=== PATIENT | female | born 2000 | race Asian ===

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

== ENCOUNTER 2019-07-09 14:27 | Outpatient (CLI) | payer OTHER ==
[2019-07-09 15:52] VITALS: BP 116/53
[2019-07-09] MEDS ORDERED: LACTATED RINGERS 1,000 ML IV ONE (17:00)
--- NOTE | 2019-07-09 17:31 | Ultrasound Report ---
Limited OB ultrasound for biophysical profile FINDINGS: breathing, spontaneous motion, tone and qualitative MAUREEN all score 2/2 for a tot al of 8/8. heart rate is 139 bpm. MAUREEN measures 9.2 cm. Signer Name: Dale Bermeo MD Signed: 07/09/2019 5:26 PM Workstation Name: [id number]
--- NOTE | 2019-07-09 18:24 | Ultrasound Report ---
ULTRASOUND BIOPHYSICAL PROFILE INDICATION / CLINICAL INFORMATION: BPP/MAUREEN. COMPARISON: None available. FINDINGS: BREATHING MOVEMENT = 2 GROSS BODY MOVEMENT = 2 TONE = 2 QUALITATIVE AMNIOTIC FLUID VOLUME = 2 TOTAL BIOPHYSICAL SCORE = 8/8 AMNIOTIC FLUID INDEX (cm) = 9.2 PRESENTATION: Cephalic. HEART RATE (beats per minute): 139 IMPRESSION: 1. biophysical profile = 8/8 2. Amniotic fluid index measures 9.2 cm. Signer Name: Jonathon Rodriguez MD Signed: 07/09/2019 6:20 PM Workstation Name: [id number]
== END 2019-07-09 18:47 | disposition home or self-care (01) ==
LOC: TRG 14:27
PROVIDERS: ATTEND Obstetrics & Gynecology
DX: O42.913 Preterm premature rupture of membranes, unspecified as to length of time between rupture and onset of labor, third trimester (principal); Z3A.36 36 weeks gestation of pregnancy
CPT/HCPCS: 76815; 76819

== ENCOUNTER 2019-07-13 23:35 | Outpatient (CLI) | payer OTHER ==
[2019-07-13 23:57] VITALS: BP 107/66
[2019-07-14] MEDS ORDERED: LACTATED RINGERS 1,000 ML IV SCH (01:00)
== END 2019-07-14 04:21 | disposition home or self-care (01) ==
LOC: TRG 23:35
PROVIDERS: ATTEND Obstetrics & Gynecology
DX: O42.92 Full-term premature rupture of membranes, unspecified as to length of time between rupture and onset of labor (principal); O47.1 False labor at or after 37 completed weeks of gestation; Z3A.37 37 weeks gestation of pregnancy
CPT/HCPCS: 59025; 96360; J7120

== ENCOUNTER 2019-07-30 14:48 | Inpatient (IN) | payer OTHER ==
[2019-07-30] MEDS ORDERED: LACTATED RINGERS 1,000 ML ONE (16:42)
[2019-07-30] MEDS ORDERED: BUTORPHANOL 2 MG/1 ML INJ IV PRN ×2 (16:49)
[2019-07-30] MEDS ORDERED: fentaNYL 100 MCG/2 ML INJ IV PRN (16:49)
[2019-07-30] MEDS ORDERED: LIDOCAINE (2%) 20 MG/1 ML VIAL 20 ML MDV INFILTRATI ONE (16:49)
[2019-07-30] MEDS ORDERED: TERBUTALINE 1 MG/1 ML INJ IVP PRN (16:49)
[2019-07-30] MEDS ORDERED: ePHEDrine SULFATE 50 MG/1 ML INJ IV PRN ×2 (16:49→21:02)
[2019-07-30] MEDS ORDERED: TERBUTALINE 1 MG/1 ML INJ SUB-Q PRN (16:49)
[2019-07-30] MEDS ORDERED: MINERAL OIL 30 ML ORAL LIQD PO PRN (16:49)
--- NOTE | 2019-07-30 16:49 | History and Physical Report ---
History of Present Illness Date of examination: 07/30/19 Date of admission: 07/30/19 Chief complaint: Leaking fluid History of present illness: 19yo G 2 P 1 0 0 1 at 38 weeks 5 days presents with contractions and leaking fluid since 07/29/19 @ 15:00. She reports +FMs but denies VB. She is a [facility] patient who initiated care at 7 weeks gestation. Her course is significant for morbid obesity and abnormal pap (ASCUS). LABS: Opos, Antibody Screen neg, VDRL NR, RI, HBsAg neg, HIV neg, Pap Test ASCUS, GC/CT neg, GBS neg Past History Past Medical History: no pertinent history Family/Genetic History: diabetes (mom), hypertension (mom), Down's syndrome, other (anemia-mom, nephrotic syndrome) Social history: single, lives with family, full code. denies: smoking, alcohol abuse, prescription drug abuse, IV drug use - Obstetrical History Expected Date of Delivery: 08/08/19 Actual Gestation: 38 Week(s) 5 Day(s) : 2 Para: 1 Hx # Term Pregnancies: 1 Number of Pregnancies: 0 Spontaneous Abortions: 0 Induced : 0 Number of Living Children: 1 #1 Gender: Male year: 2[age]018 (11/2019) Birthweight: 3.629 kg (8 lbs) Method of Delivery: Vaginal (vacuum-assisted) Gestational age at delivery: 39 Complications: none Medications and Allergies Allergies Allergy/AdvReac Type Severity Reaction Status Date / Time No Known Allergies Allergy Verified 11/18/17 15:05 Home Medications Medication Instructions Recorded Confirmed Last Taken Type Vit-Fe Fumar-FA [ 1 tab PO QDAY 11/18/17 11/18/17 11/18/17 09:00 History Vitamin] 1 Review of Systems All systems: negative - Vital Signs Vital signs: Vital Signs Pulse BP 106 H 116/63 07/30/19 15:05 07/30/19 15:05 Temp Pulse Resp BP Pulse Ox 98.2 F 91 H 15 112/53 98 07/30/19 15:10 07/30/19 16:41 07/30/19 15:10 07/30/19 16:38 07/30/19 16:41 - Obstetrical FHR: auscultation normal, category 1 FHR comments: baseline 150, moderate variability, 15x15 accels, no decels Cervical Dilatation: 6 (per RN) Cervical Effacement Percentage: 70 (per RN) station: -2(per RN) Results All other labs normal. Assessment and Plan - Patient Problems (1) 38 weeks gestation of Current Visit: Yes Status: Acute (2) SPROM (prolonged spontaneous rupture of membranes) Current Visit: Yes Status: Acute Plan to address problem: Pt is afebrile Prophylactic antibiotics therapy initiated (3) Active labor at term Current Visit: Yes Status: Acute Plan to address problem: Admit to L&D with routine labor orders Start Oxytocin for labor augmentation Anticipate vaginal delivery (4) Morbid obesity with BMI of 40.0-44.9, adult Current Visit: Yes Status: Acute
[2019-07-30] MEDS ORDERED: OXYTOCIN DRIP 30 UNITS/500 ML BAG IV SCH (17:00)
[2019-07-30] MEDS ORDERED: OXYTOCIN 20 UNIT/1000ML DRIP 20 UNITS/1,000 ML BAG IV SCH (17:00)
[2019-07-30 17:23] LABS: Hematocrit 33.4 % (30.3-42.9); Mean Corpuscular HGB Conc 33 % (30-34); Mean Corpuscular Volume 86 fl (79-97); Platelet Count 255 K/mm3 (140-440); Red Blood Count 3.88 M/mm3 (3.65-5.03); Red Cell Distribution Width 15.7 % (13.2-15.2)
[2019-07-30] MEDS ORDERED: GENTAMICIN/NS 120MG/100ML 120 MG/100 ML BAG IV ONE (17:30)
[2019-07-30] MEDS ORDERED: ONDANSETRON 4 MG/2 ML INJ ONE (17:45)
[2019-07-30] MEDS ORDERED: ONDANSETRON 4 MG/2 ML INJ IV PRN ×2 (17:46→23:39)
[2019-07-30] MEDS ORDERED: AMPICILLIN/NS 2 GM/100 ML 2 GM/100 ML BAG IV SCH (18:00)
[2019-07-30] MEDS ORDERED: diphenhydrAMINE 50 MG/ML VIAL IV ONE (18:27)
--- NOTE | 2019-07-30 18:32 | Event Note ---
Date: 07/30/19 Was notified by RN that after initiating Ampicillin secondary to prolonged SROM pt c/o feeling like her throat was closing. Ampicillin was immediately discontinued. O2 sat is 97%. Benadryl 25mg IV x1 ordered. Clindamycin 900mg IV q8h ordered.
[2019-07-30] MEDS: GENTAMICIN/NS 80 MG/100 ML 100 ML IV SCH (18:47)
[2019-07-30] MEDS: LACTATED RINGERS 1,000 ML IV SCH ×3 (19:40→21:48)
[2019-07-30] MEDS ORDERED: DEXMEDETOMIDINE 200 MCG/2 ML VIAL IV ONE (20:27)
[2019-07-30] MEDS ORDERED: NALOXONE 2 MG/2 ML INJ IV PRN (21:02)
--- NOTE | 2019-07-30 21:13 | Anesthesia Consultation ---
Anesthesia Consult and Med Hx Date of service: 07/30/19 - Airway Anesthetic Teeth Evaluation: Good ROM Head & Neck: Adequate Mental/Hyoid Distance: Adequate Mallampati Class: Class III Intubation Access Assessment: Probably Good - Pulmonary Exam CTA: Yes - Cardiac Exam Cardiac Exam: RRR - Pre-Operative Health Status ASA Pre-Surgery Classification: ASA3 Proposed Anesthetic Plan: Epidural - Pulmonary Hx Smoking: No Hx Asthma: No Hx Respiratory Symptoms: No SOB: No COPD: No Home Oxygen Therapy: No Hx Pneumonia: No Hx Sleep Apnea: No - Cardiovascular System Hx Hypertension: No Hx Coronary Artery Disease: No Hx Heart Attack/AMI: No Hx Angina: No Hx Percutaneous Transluminal Coronary Angioplasty (PTCA): No Hx Cardia Arrhythmia: No Hx Pacemaker: No Hx Internal Defibrillator: No Hx Valvular Heart Disease: No Hx Heart Murmur: No Hx Peripheral Vascular Disease: No - Central Nervous System Hx Neuromuscular Disorder: No Hx Seizures: No CVA: No Hx Back Pain: No Hx Psychiatric Problems: No - Gastrointestinal Hx Ulcer: No Hx Gastroesophageal Reflux Disease: No - Endocrine Hx Renal Disease: No Hx End Stage Renal Disease: No Hx Cirrhosis: No Hx Liver Disease: No Hx Insulin Dependent Diabetes: No Hx Non-Insulin Dependent Diabetes: No Hx Thyroid Disease: No Hx Hypothyroidism: No Hx Hyperthyroidism: No - Hematic Hx Anemia: No Hx Sickle Cell Disease: No - Other Systems Hx Alcohol Use: No Hx Substance Use: No Hx Cancer: No Hx Obesity: Yes
[2019-07-30] MEDS ORDERED: fentaNYL-BUPIV 2 MCG/ML-0.125% 200 MCG/100 ML BAG EPIDURAL SCH (22:00)
[2019-07-30] MEDS: OXYTOCIN 20 UNIT/1000ML DRIP 20 UNITS/1,000 ML BAG IV SCH (22:56)
[2019-07-30] MEDS ORDERED: miSOPROStol 200 MCG TAB ONE (22:57)
[2019-07-30] MEDS ORDERED: miSOPROStol 200 MCG TAB PR ONE (22:59)
--- NOTE | 2019-07-30 23:33 | Procedure Note ---
OB Delivery Note - Delivery Date of Delivery: 07/30/19 (22:52) Surgeon: AVERY GRAY (CNM) Estimated blood loss: other (250cc) - Vaginal Delivery presentation: compound (vertex + right posterior hand) Delivery position: OA Intrapartum events: meconium, other(please specify) (prolonged SROM >24 hrs) Delivery induction: none Delivery augmentation: pitocin Delivery monitor: external FHT, external uterine Route of delivery: (22:52) Delivery placenta: spontaneous (22:56) Delivery cord: 3 umbilical vessels Episiotomy: none Delivery laceration: 1st degree (perineal, periurethral) Delivery repair: vicryl Anesthesia: epidural Delivery comments: of a less vigorous 8 lbs 1.2 oz female on 07/30/19 @ 22:52 with NICU team at bedside. Umbilical cord double-clamped and cut and baby taken to radiant warmer for resuscitation by NICU team personnel. Cord blood collected. Spontaneous delivery of placenta, Nancy-side presenting @ 22:56.Heavy lochia present. Fundal massage and IV Pitocin bolus initiated. Cytotec 800mcg DC administered. Fundus F/ML/U. 1st degree perineal and periurethral laceration noted and repaired under epidural anesthesia. Patient tolerated the procedure well. Placenta to pathology secondary to meconium & prolonged ROM. Mom and baby in stable condition. - A at 1 minute: 8 at 5 minutes: 9 Gender: Female (8 lbs 1.2oz (3664 gm); 19.5 in)
[2019-07-30] MEDS ORDERED: PROMETHAZINE 25 MG RECT SUPP PR PRN (23:39)
[2019-07-30] MEDS ORDERED: MAGNESIUM HYDROXIDE (MOM) ORAL LIQD UDC PO PRN (23:39)
[2019-07-30] MEDS ORDERED: LANOLIN/ZINC/DIMETHICONE (LANSINOH) 7 GM TP PRN (23:39)
[2019-07-30] MEDS ORDERED: diphenhydrAMINE 25 MG CAP PO PRN (23:39)
[2019-07-30] MEDS ORDERED: WITCH HAZEL/ GLYCERIN PAD TP PRN (23:39)
[2019-07-30] MEDS ORDERED: ACETAMINOPHEN 325 MG TAB PO PRN (23:39)
[2019-07-30] MEDS ORDERED: PROMETHAZINE 25 MG TAB PO PRN (23:39)
[2019-07-31] MEDS: OXYTOCIN 20 UNIT/1000ML DRIP 20 UNITS/1,000 ML BAG IV SCH (00:07)
[2019-07-31] MEDS: GENTAMICIN/NS 80 MG/100 ML 100 ML IV SCH ×3 (02:45→18:21)
[2019-07-31] MEDS: IBUPROFEN 600 MG TAB PO SCH ×4 (05:26→22:33)
[2019-07-31 06:22] LABS: Hematocrit 29.9 % (30.3-42.9); Hemoglobin 9.9 gm/dl (10.1-14.3); Mean Corpuscular HGB Conc 33 % (30-34); Mean Corpuscular Volume 87 fl (79-97); Platelet Count 227 K/mm3 (140-440); Red Blood Count 3.44 M/mm3 (3.65-5.03); Red Cell Distribution Width 15.3 % (13.2-15.2)
[2019-07-31] MEDS: PRENATAL VIT27-FE FUMARATE-FOLIC ACID VIT TAB PO SCH (09:32)
[2019-07-31] MEDS: FERROUS SULFATE 325 MG TAB PO SCH ×2 (09:32→22:34)
--- NOTE | 2019-07-31 09:38 | Progress Note ---
Assessment and Plan - Patient Problems (1) Status post normal vaginal delivery Current Visit: Yes Status: Acute Plan to address problem: Continue routine PP orders Anticipate d/c home tomorrow F/U at office in 6 wks for routine PP visit (2) Anemia Current Visit: Yes Status: Acute Qualifiers: Anemia type: other cause Other causes of anemia: acute posthemorrhagic Qualified Code(s): D62 - Acute posthemorrhagic anemia Plan to address problem: Asymptomatic Continue daily oral iron supplementation as directed Increase iron rich foods into diet Subjective - Subjective Date of service: 07/31/19 Principal diagnosis: S/P ; PPD#1 Interval history: See admission H & P; OB delivery summary and PP progress notes Patient reports: appetite normal, voiding normally, pain well controlled, flatus, ambulating normally : doing well, bottle feeding (and ) Objective - Vital Signs Latest vital signs: Vital Signs Temp Pulse Resp BP BP Pulse Ox 07/31/19 07:36 98.7 F 73 20 103/49 97 07/31/19 04:00 98.4 F 74 18 102/74 07/30/19 23:31 73 122/58 07/30/19 23:07 79 115/59 07/30/19 22:48 133 H 99 07/30/19 22:43 86 98 07/30/19 22:38 93 H 99 07/30/19 22:33 87 99 07/30/19 22:28 88 98 07/30/19 22:26 102 H 93 07/30/19 22:23 90 97 07/30/19 22:18 84 98 07/30/19 22:15 91 H 87 07/30/19 22:13 91 H 99 07/30/19 22:08 92 H 99 07/30/19 22:06 78 103/51 07/30/19 22:03 77 96 07/30/19 21:58 80 97 07/30/19 21:53 86 98 07/30/19 21:51 76 104/52 07/30/19 21:48 78 98 07/30/19 21:43 85 98 07/30/19 21:40 81 113/53 07/30/19 21:38 80 98 07/30/19 21:33 95 H 98 07/30/19 21:28 84 98 07/30/19 21:23 82 99 031620 21:21 78 107/53 0316/20 21:18 89 111/53 100 031620 21:15 81 108/54 031620 21:13 76 98 031620 21:12 83 104/54 031620 21:09 85 118/59 1620 21:08 86 99 031620 21:06 85 113/57 1620 21:03 87 109/53 98 1620 21:01 86 116/56 031620 20:58 87 100 031620 20:54 86 100/50 031620 20:53 92 H 99 031620 20:51 85 111/53 1620 20:49 94 H 93 031620 20:48 85 116/57 97 1620 20:45 75 135/63 031620 20:43 94 H 100 031620 20:40 97 H 129/60 1620 20:38 104 H 97 031620 20:33 64 99 031620 20:28 100 H 97 031620 20:26 100 H 129/60 0316/20 20:23 83 98 031620 20:18 79 97 031620 20:13 82 97 031620 20:11 65 93 031620 20:10 82 93/54 0316/20 20:08 88 97 031620 20:03 85 100 031620 19:58 84 97 031620 19:55 82 104/56 031620 19:53 66 95 0316/20 19:50 72 91 0316/20 19:48 81 94 0316/20 19:43 81 97 031620 19:40 86 104/55 031620 19:38 76 97 031620 19:33 81 98 031620 19:28 98.4 F 80 22 117/53 117/53 97 031620 19:23 83 97 0316/20 19:22 66 92 031620 19:18 78 96 031620 19:13 89 97 0320 19:08 81 97 03/16/20 19:03 92 H 97 20 18:58 79 99 20 18:53 84 97 20 18:48 65 96 20 18:43 83 97 20 18:38 86 96 20 18:33 93 H 97 07/30/19 18:28 88 96 07/30/19 18:23 90 97 07/30/19 18:18 85 99 07/30/19 18:13 90 98 20 18:11 84 104/52 07/30/19 18:08 97 H 96 07/30/19 18:03 100 H 96 07/30/19 18:01 92 H 110/48 07/30/19 17:58 86 95 20 17:55 88 92/52 20 17:53 86 89/52 96 20 17:51 81 93/51 20 17:49 80 89/51 94 20 17:48 99 H 96 20 17:40 89 102/52 20 17:11 91 H 111/63 20 17:00 98.2 F 07/30/19 16:41 91 H 98 1620 16:38 93 H 112/53 20 16:36 86 98 20 16:31 97 H 98 20 15:38 111 H 88 20 15:37 105 H 100 20 15:32 97 H 99 20 15:27 100 H 98 20 15:22 103 H 98 20 15:17 98 H 98 20 15:12 94 H 97 1620 15:10 98.2 F 106 H 15 116/63 97 1620 15:05 106 H 116/63 Intake and Output 07/30/1920 07/31/19 23:59 07:59 15:59 Intake Total 2051.467 1640 Output Total 1100 Balance 2051.467 540 Intake: IV 2051.467 1100 CLEOCIN 900 MG/50 mL 900 50 mg In 50 ml @ 100 mls/hr IV Q8H [facility] Rx#:[id number] Gentamicin/Ns 80 mg/100 100 100 ml 100 ml @ 200 mls/hr IV Q8H [facility] Rx#:[id number] Lactated Ringers 1,000 ml 1900 @ 125 mls/hr IV DIRECT [facility] Rx#:[id number] PITOCin/NS 20 UNIT/1000ML 1000 DRIP 20 units In 1,000 ml @ As Directed IV DIRECT [facility] Rx#:[id number] PITOCin/NS 30 UNIT/500ML 2.467 30 units In 500 ml @ As Directed IV TITR [facility] Rx#: [id number] Oral 240 Intake, Free Water 300 Output: Urine 1100 Self-Catheterization 300 Void 800 Other: Total, Intake Amount 240 Total, Output Amount 800 # Voids Void 1 Estimated Blood Loss 250 - Exam Breasts: Present: normal Cardiovascular: Present: Regular rate Lungs: Present: Normal air movement Abdomen: Present: soft Uterus: Present: firm, fundal height below umbilicus (U-1) Extremities: Present: edema (some edema in feet) Deep Tendon Reflex Grade: Normal +2 Incision: Present: other (1st degree laceration, healing as expected) - Labs Labs: Abnormal lab results 07/30/19 07/31/19 Range/Units 15:50 05:55 WBC 17.7 H 16.4 H (4.5-11.0) K/mm3 RBC 3.44 L (3.65-5.03) M/mm3 Hgb 9.9 L (10.1-14.3) gm/dl Hct 29.9 L (30.3-42.9) % RDW 15.7 H 15.3 H (13.2-15.2) %
[2019-07-31] MEDS: HYDROcodone/ACETAMINOPHEN 5-325 MG TAB PO PRN ×2 (09:40→17:10)
--- NOTE | 2019-07-31 09:44 | Discharge Summary ---
Providers - Providers Date of Admission: 07/30/19 14:49 Date of discharge: 08/01/19 (1200) Attending physician: KATY ARECHIGA MD Primary care physician: KATY ARECHIGA MD Hospitalization Reason for admission: active labor, IUP at term Delivery: Episiotomy: none Laceration: 1st degree (healing as expected) Other procedures: none complications: other (anemia) Discharge diagnosis: IUP at term delivered, other (anemia) [place] baby: female Hospital course: See admission H & P; OB delivery summary and PP progress notes Condition at discharge: Stable Disposition: DC-01 TO HOME OR SELFCARE - Discharge Diagnoses (1) Status post normal vaginal delivery Status: Acute (2) Anemia Status: Acute Qualifiers: Anemia type: other cause Other causes of anemia: acute posthemorrhagic Qualified Code(s): D62 - Acute posthemorrhagic anemia Plan - Discharge Medications Prescriptions: Ferrous Sulfate [Feosol 325 MG tab] 325 mg PO QDAY 30 Days #30 tablet - Provider Discharge Summary Activity: routine, no sex for 6 weeks, no heavy lifting 4 weeks, no strenuous exercise Diet: other (Iron rich diet) Instructions: routine Additional instructions: [] Smoking cessation referral if applicable(refer to patient education folder for contact #) [] Refer to [facility] Booklet Call your doctor immediately for: * Fever > 100.5 * Heavy vaginal bleeding ( >1 pad per hour) * Severe persistent headache * Shortness of breath * Reddened, hot, painful area to leg or breast * Drainage or odor from incision. * Keep laceration site clean and dry at all times and follow doctor's instructions regarding bathing/showering - Follow up plan Follow up: KATY ARECHIGA MD [Primary Care Provider] - 6 Weeks
--- NOTE | 2019-07-31 14:21 | Post Anesthesia Evaluation ---
- Post Anesthesia Evaluation Patient Participated: Yes Airway Patent: Yes Stable Respiratory Function: Yes Nausea/Vomiting: No Temp > 96.8F: Yes Pain Manageable: Yes Adequeate Hydration: Yes Anesthesia Complications: No Block Receding Appropriately: Yes Patient on Ventilator: No
[2019-07-31] MEDS ORDERED: LACTATED RINGERS 1,000 ML IV SCH (17:00)
[2019-08-01] MEDS: GENTAMICIN/NS 80 MG/100 ML 100 ML IV SCH (01:42)
[2019-08-01] MEDS: HYDROcodone/ACETAMINOPHEN 5-325 MG TAB PO PRN (03:32)
[2019-08-01] MEDS: IBUPROFEN 600 MG TAB PO SCH ×3 (06:13→11:41)
[2019-08-01] MEDS ORDERED: ONDANSETRON 4 MG/2 ML INJ ONE (07:42)
[2019-08-01] MEDS ORDERED: ROCURONIUM 50 MG/5 ML INJ IV ONE (07:42)
[2019-08-01] MEDS ORDERED: LIDOCAINE MPF (2%) 20 MG/1 ML VIAL 5 ML ONE (07:42)
[2019-08-01] MEDS ORDERED: HYDROmorphone 1 MG/1 ML INJ ONE (07:43)
[2019-08-01] MEDS ORDERED: propofoL 200 MG/20 ML VIAL IV ONE (07:43)
[2019-08-01] MEDS: PRENATAL VIT27-FE FUMARATE-FOLIC ACID VIT TAB PO SCH (10:05)
[2019-08-01] MEDS: FERROUS SULFATE 325 MG TAB PO SCH (10:05)
[2019-08-01 12:16] VITALS: BP 118/91
== END 2019-08-01 13:17 | disposition home or self-care (01) | DRG 806 ==
LOC: TRG 14:48 → LD 14:48 → TRG 14:49 → OB 07-31 02:58
PROVIDERS: ADMIT Obstetrics & Gynecology; ATTEND Obstetrics & Gynecology
PROC: 10E0XZZ Delivery of Products of Conception, External Approach (ICD-10-PCS; principal; 2019-07-30)
PROC: 0HQ9XZZ Repair Perineum Skin, External Approach (ICD-10-PCS; 2019-07-30)
PROC: 3E0R3BZ Introduction of Anesthetic Agent into Spinal Canal, Percutaneous Approach (ICD-10-PCS; 2019-07-30)
PROC: 00HU33Z Insertion of Infusion Device into Spinal Canal, Percutaneous Approach (ICD-10-PCS; 2019-07-30)
DX: O99.214 Obesity complicating childbirth (principal); D62 Acute posthemorrhagic anemia; Z37.0 Single live birth; Z3A.38 38 weeks gestation of pregnancy; Z83.3 Family history of diabetes mellitus; Z82.49 Family history of ischemic heart disease and other diseases of the circulatory system; E66.01 Morbid (severe) obesity due to excess calories; Z71.3 Dietary counseling and surveillance; O77.0 Labor and delivery complicated by meconium in amniotic fluid; O32.6XX0 Maternal care for compound presentation, not applicable or unspecified; O70.0 First degree perineal laceration during delivery; O71.82 Other specified trauma to perineum and vulva
CPT/HCPCS: 36415; 85027; 86592; 86850; 86900; 86901; 88307; G0378; J0290; J0595; J1170; J1200; J1580; J2405; J2590; J2704; J3010; J3490; J7120